=== PATIENT | male | born 1960 | race American Indian/Alaskan Native ===

== ENCOUNTER 2018-05-09 15:24 | Outpatient (CLI) | payer OTHER ==
--- NOTE | 2018-05-09 17:41 | Ultrasound Report ---
FINAL REPORT EXAM: US CHEST HISTORY: LEFT FLANK PAIN TECHNIQUE: Ultrasound examination of the left chest and left flank region PRIORS: None. FINDINGS: No evidence of left pleural effusion. In the left flank region, in area of pain, there is a nonspecific subcutaneous heterogeneous hypoechoic collection which may or may not be a separate lesion. Approximate measurements are 5.3 x 1.8 x 6.7 cm. This may simply be asymmetric muscle. A mass cannot be definitively excluded with ultrasound. This finding is 5.4 mm deep to the skin surface. IMPRESSION: Nonspecific heterogeneous tissue in the superficial left flank region may be asymmetric muscle or a mass. Consider followup chest CT to further characterize, in the appropriate clinical setting
== END 2018-05-09 15:25 | disposition home or self-care (01) ==
LOC: US 15:24
DX: R10.9 Unspecified abdominal pain (principal)
CPT/HCPCS: 76604